=== PATIENT | female | born 1995 | race Caucasian/White ===

== ENCOUNTER → 2016-10-29 | Outpatient (CLI) | payer OTHER ==
--- NOTE | 2016-10-29 15:20 | DX ---
Left knee series 5 views including upright. History: Snowboard injury on October 28, 2016 with with persistent medial knee pain. Comparison to prior study from April 24, 2015. Findings: Osseous structures are intact without fracture. The knee joint space is normal. No osteophy geovany are seen. No intra-articular calcifications are evident. There is no effusion. On the merchant vi ew obtained there is stable mild lateral tilt of the patella without significant subluxation. No oste ophytes are seen. Impression: Stable mild lateral tilt of the patella. Otherwise, normal left knee series.
== END ==
LOC: BMCIMAGING 13:26
PROVIDERS: ATTEND Emergency Medicine
DX: S89.92XA Unspecified injury of left lower leg, initial encounter (principal); V00.311A Fall from snowboard, initial encounter; Y93.23 Activity, snow (alpine) (downhill) skiing, snowboarding, sledding, tobogganing and snow tubing